=== PATIENT | female | born 1980 | race Caucasian/White ===

== ENCOUNTER 2017-11-03 20:06 | Day surgery (SDC) | payer OTHER ==
[~2017-11-03] VITALS: Ht 167.6 cm; Wt 61.6 kg
[2017-11-03 20:47] LABS: HEMATOCRIT 42.9 % (36.0-46.0); HEMOGLOBIN 14.7 G/DL (11.9-15.5); MCHC 34.3 G/DL (30.0-36.0); MCV 84.6 FL (83-99); PLATELET COUNT 230 K/uL (156-360); RBC DIS.WIDTH-CV 13.2 % (11.8-14.6); RBC DIS.WIDTH-SD 40.7 % (39-53); RED BLOOD COUNT 5.07 M/uL (3.80-5.20); WHITE BLOOD COUNT 20.2 K/uL (4.1-10.2)
[2017-11-03 20:55] LABS: ALBUMIN 4.4 g/dL (3.2-4.8); CHLORIDE 99 mEq/L (99-109); POTASSIUM 3.8 mEq/L (3.7-5.4); SODIUM 135 mEq/L (136-147)
[2017-11-03 20:58] LABS: GLUCOSE 96 mg/dL (70-99); TOTAL PROTEIN 7.5 g/dL (6.4-8.3)
[2017-11-03 21:00] LABS: TOTAL BILIRUBIN 1.5 mg/dL (0.0-1.0)
[2017-11-03 21:01] LABS: ALKALINE PHOSPHATASE 53 IU/L (3-129); CREATININE 0.8 mg/dL (0.6-1.3); GFR ESTIMATE (CALCULATED) > 59 mL/min/
[2017-11-03 21:02] LABS: UREA NITROGEN (BUN) 7 mg/dL (9-23)
[2017-11-03 21:03] LABS: AST (GOT) 17 IU/L (2-34)
[2017-11-03 21:04] LABS: ALT (GPT) 13 IU/L (3-49)
[2017-11-03 21:05] LABS: LIPASE 12 U/L (1.0-51.0)
[2017-11-03 21:10] LABS: QUANTITATIVE HCG < 4.0 MIU/ML
[2017-11-03 22:40] LABS: APPEARANCE CLEAR ((CLEAR)); BILIRUBIN NEGATIVE; BLOOD SMALL; COLOR STRAW ((YELLOW)); GLUCOSE (STRIP) NEGATIVE; KETONES 80; LEUKOCYTES NEGATIVE; NITRITE NEGATIVE; PROTEIN (STRIP) NEGATIVE; SPECIFIC GRAVITY 1.008 (1.000-1.030); UROBILINOGEN 0.2 MG/DL (0.2-1.0)
[2017-11-03 22:52] LABS: BACTERIA NONE SEEN /HPF; EPITHELIAL CELLS RARE /HPF; MUCUS NONE SEEN /LPF; RED BLOOD CELLS 0-5 /HPF (0-5); UCUL ADDED? NO; WHITE BLOOD CELLS 0-5 /HPF (0-5)
[2017-11-03] MEDS ORDERED: LEVONORGESTREL1 EAC1 PO (23:12)
[2017-11-04 04:04] VITALS: BP 111/63
[2017-11-04 05:59] LABS: HEMATOCRIT 39.1 % (36.0-46.0); HEMOGLOBIN 12.8 G/DL (11.9-15.5); MCH 28.6 PG (29.0-34.0); MCHC 32.7 G/DL (30.0-36.0); MCV 87.3 FL (83-99); PLATELET COUNT 192 K/uL (156-360); RBC DIS.WIDTH-CV 13.6 % (11.8-14.6); RBC DIS.WIDTH-SD 43.1 % (39-53); RED BLOOD COUNT 4.48 M/uL (3.80-5.20); WHITE BLOOD COUNT 13.9 K/uL (4.1-10.2)
[2017-11-04 06:24] LABS: CHLORIDE 106 MEQ/L (99-109); CREATININE 0.8 MG/DL (0.6-1.3); GFR ESTIMATE (CALCULATED) > 59 mL/min/; GLUCOSE 127 mg/dL (70-99); POTASSIUM 4.6 MEQ/L (3.7-5.4); SODIUM 139 MEQ/L (136-147); UREA NITROGEN (BUN) 8 mg/dL (9-23)
[2017-11-04 08:23] VITALS: BP 105/66
[2017-11-04] MEDS ORDERED: HYDROCODON-ACE1 EAC7 PO (10:09)
[2017-11-04] MEDS ORDERED: COLACE100 MG PO (10:13)
[2017-11-04 11:14] VITALS: BP 112/72
[2017-11-04 15:55] VITALS: BP 99/57
== END 2017-11-04 18:12 | disposition home or self-care (01) ==
LOC: EME 20:06 → CANRESERV 11-04 00:49 → ENRESERV 11-04 00:49 → EME 11-04 00:59 → SDC 11-04 00:59 → ENRESERV 11-04 02:13 → 2SOUTH 11-04 02:15 → ENRESERV 11-04 02:47 → 2EAST 11-04 03:23
PROVIDERS: Surgery
PROC: 0DTJ4ZZ Resection of Appendix, Percutaneous Endoscopic Approach (ICD-10-PCS; principal; 2017-11-04)
DX: K35.80 Unspecified acute appendicitis (principal); R91.1 Solitary pulmonary nodule; Z88.1 Allergy status to other antibiotic agents
CPT/HCPCS: 74177; 80048; 80053; 81003; 83690; 84702; 85027; 88304; 99281; 99285; G0378; J1100; J1170; J1885; J2250; J2405; J2543; J2710; J7030; J7050; J7120; S0020